=== PATIENT | male | born 1965 | race Caucasian/White ===

== ENCOUNTER 2018-11-27 05:49 | Observation (INO) ==
--- NOTE | 2018-11-18 14:04 | PAT Medication Instructions ---
Medication Instructions Date of Service November 18, 2018 Home Medications escitalopram oxalate 5 mg PO QDD losartan 50 mg PO QAM mometasone [Asmanex Twisthaler] 1 inh INHALATION QAM multivitamin 1 cap PO DAILY omega 3-mrc-spp-fish oil [Fish Oil] 1 cap PO DAILY STOP taking 2 weeks before surgery (or as soon as possible if surgery is within 2 weeks) omega 3-rpu-kzz-fish oil [Fish Oil] 1 cap PO DAILY DO NOT take the morning of surgery losartan 50 mg PO QAM multivitamin 1 cap PO DAILY Take morning of surgery With a small sip of water, OTHERWISE NOTHING TO EAT OR DRINK AFTER MIDNIGHT: mometasone [Asmanex Twisthaler] 1 inh INHALATION QAM Take evening before surgery escitalopram oxalate 5 mg PO QDD Other Notes If you have any questions please call us at [phone] or [phone] or [phone] or [phone]
--- NOTE | 2018-11-19 10:53 | Anesthesiology Consultation ---
Date of Service November 19, 2018 Assessment & Plan (1) Encounter for pre-operative examination: Possible difficult intubation due to anatomy* Chart Review Chart Review: Acceptable Risk for Surgery (pending surgeon-ordered UA) and Patient seen in Pre Admission Testing Teaching & Discussion Pre-Anesthesia Teaching/Discussion Notes: Instructed NPO after midnight before surgery,except medications with 15 cc of water. Medication instructions provided according to the PAT guidelines. History Surgery Operation Date: 11/27/18 07:45 Proposed Procedures p C5-C6 Anterior Cervical Discectomy and Fusion with Spinal Cord Monitoring - Rodolfo Martinez DO Height/Weight Height: 6 ft 1 in Weight: 122.4 kg Allergies Allergy/AdvReac Type Severity Reaction Status Date / Time CAT SCAN DYE Allergy Unknown Hives Uncoded 11/17/18 12:08 Medications Home Medications Medication Instructions Recorded Confirmed Last Taken escitalopram oxalate 5 mg PO QDD 11/17/18 11/17/18 11/16/18 losartan 50 mg PO QAM 11/17/18 11/17/18 11/17/18 mometasone [Asmanex Twisthaler] 1 inh INHALATION QAM 11/17/18 11/17/18 11/17/18 multivitamin 1 cap PO DAILY 11/17/18 11/17/18 Unknown omega 4-quo-wzf-fish oil [Fish Oil] 1 cap PO DAILY 11/17/18 11/17/18 Unknown Past Medical History Medical History Anxiety Asthma asthma HTN (hypertension) History of blood clots ? superficial RLE (2 years ago)- "no treatment" needed per patient Obesity Exercise / Class Metabolic Activity II 4-5 Yardwork/Stairs/Walk up hill Past Family History Family History Mother Family history of diabetes mellitus (DM) Past Surgical History Surgical History History of appendectomy History of left knee surgery History of right knee surgery Hx of varicose vein stripping RLE Past Anesthesia History No Hx of Anesthesia Complications and No Family Hx of Anesthesia Complications History of PONV No Hx of PONV and Hx of Motion Sickness (rare) STOP BANG Total 4 Social History Smoking Status: Never smoker Do You Dip or Chew Tobacco: Yes (2 CANS/WEEK, ADVISED NPO) Hx Alcohol Use: No Hx Substance Use: No substance use type: does not use Review of Systems Patient denies chest pain, shortness of breath, dyspnea on exertion, reflux, cough, wheezing, palpitations. Physical Exam Vital Signs VITALS BP 143/89 P 70 TEMP 98.5 SP02 97%RA RESP 16 PHYSICAL Full neck and c-spine range of motion. Mild cervicalgia with extension. Full TMJ range of motion. TMD 3 finger breaths Mallampati Score 2 Dentition: intact Lungs: clear throughout to auscultation Cardiac: regular rate and rhythm, no murmurs noted Spine: normal Carotid arteries: negative bruit Extremities: no edema Trimmed corbett Very short, thick neck Testing Laboratory Results 11/19/18 11:14 11/19/18 11:14 PT 10.3 Seconds (9.0-12.0) 11/19/18 11:14 INR 1.0 (0.9-1.1) 11/19/18 11:14 APTT 25.1 Seconds (21.0-31.0) 11/19/18 11:14 Blood Type O Positive 11/19/18 11:14 Antibody Screen NEGATIVE 11/19/18 11:14 Electrocardiogram Date: 11/19/18 NSR at 65bpm. LAD. NS IVCD. Chest X-Ray Date: 11/19/18 Findings: + NAD
--- NOTE | 2018-11-19 11:51 | XRay Report ---
XR chest Pre-admission PA/Lat CLINICAL HISTORY: 53 years-old Male presenting with preoperative assessment. TECHNIQUE: PA and lateral views of the chest were obtained. COMPARISON: None. FINDINGS: Cardiomediastinal silhouette normal. Lungs and pleural spaces clear. Degenerative changes of the thor acic spine. Upper abdomen normal. IMPRESSION: 1. No acute cardiopulmonary disease. Electronically signed by: Rubens Cortez M.D. 11/19/2018 11:50 AM
[2018-11-19 12:06] LABS: Basophils # (auto) 0.03 K/uL (0-0.2); Basophils % (auto) 0.4 %; Eosinophils # (auto) 0.14 K/uL (0-0.5); Eosinophils % (auto) 1.8 %; Hematocrit (blood only) 44.9 % (42-52); Hemoglobin 16.3 g/dL (14.0-18.0); Immature Granulocytes # (auto) 0.03 K/uL (0.00-0.02); Immature Granulocytes % (auto) 0.4 %; Lymphocytes # (auto) 2.91 K/uL (1.2-3.4); Lymphocytes % (auto) 38.2 %; Mean Corpuscular Hemoglobin 31.5 pg (25-34); Mean Corpuscular Hgb Conc 36.3 g/dL (32-36); Mean Corpuscular Volume 86.8 fL (80-100); Mean Platelet Volume 9.9 fL (7.4-10.4); Monocytes # (auto) 0.59 K/uL (0.11-0.59); Monocytes % (auto) 7.8 %; Neutrophils # (auto) 3.91 K/uL (1.4-6.5); Neutrophils % (auto) 51.4 %; Platelet Count 173 K/uL (130-400); RDW Coefficient of Variation 12.9 % (11.5-14.5); RDW Standard Deviation 41.4 fL (36.4-46.3); Red Blood Count 5.17 M/uL (4.7-6.1); White Blood Count 7.61 K/uL (4.8-10.8)
[2018-11-19 12:14] LABS: BUN Creatinine Ratio 15.5 (10-20); Creatinine Clr Calc Pharmacy 106.4 ml/min; Est GFR (African American) 88.4; Est GFR (Non-African American) 76.2
[2018-11-19 12:27] LABS: Partial Thromboplastin Ratio 0.9; Partial Thromboplastin Time 25.1 Seconds (21.0-31.0); Prothrombin Time 10.3 Seconds (9.0-12.0)
[2018-11-27] MEDS ORDERED: CeleBREX 200 MG CAP PO SCH (06:00)
[2018-11-27] MEDS ORDERED: CEFAZOLIN 3000MG 72.5 ML IV SCH (06:00)
[2018-11-27] MEDS ORDERED: ACETAMINOPHEN 500 MG TAB PO SCH (06:00)
[2018-11-27] MEDS ORDERED: LR 15ML/HR IV SCH (06:00)
[2018-11-27] MEDS ORDERED: GABAPENTIN 900 MG DOSE PO SCH (06:00)
[2018-11-27] MEDS ORDERED: fentaNYL citrate 100 MCG/2 ML VIAL ONE ×4 (06:42→08:40)
[2018-11-27] MEDS ORDERED: MIDAZOLAM HCL 1 MG/ML 2ML VIAL ONE (06:42)
[2018-11-27] MEDS ORDERED: HYDROmorphone INJ 2 MG/ML SYR/VIAL ONE (06:42)
[2018-11-27] MEDS ORDERED: ONDANSETRON INJ 2 MG/ML 2 ML VIAL ONE (06:44)
[2018-11-27] MEDS ORDERED: GLYCOPYRROLATE 0.2 MG/ML VIAL ONE (06:44)
[2018-11-27] MEDS ORDERED: NEOSTIGMINE METHYLSULFATE 1 MG/ML 10ML VIAL ONE (06:44)
[2018-11-27] MEDS ORDERED: LIDOCAINE HCL 2% 2 ML VIAL/AMP(20MG/ML) INFIL ONE (06:44)
[2018-11-27] MEDS ORDERED: ROCURONIUM BROMIDE 10 MG/ML 5 ML VIAL ONE (06:44)
[2018-11-27] MEDS ORDERED: DEXAMETHASONE SOD INJ 4 MG/ML VIAL ONE (06:44)
[2018-11-27] MEDS ORDERED: PROPOFOL IV EMULSION 10 MG/ML 20 ML VIAL IV ONE (06:44)
[2018-11-27] MEDS ORDERED: BACITRACIN INJ 50,000 UNIT VIAL ONE (06:58)
--- NOTE | 2018-11-27 07:32 | History & Physical Bridge Note ---
Date of Service November 27, 2018 History & Physical Bridge Note I have examined the patient, reviewed the History & Physical and in the interval since the performance of the History & Physical I have noted the following changes of clinical significance: no changes noted
--- NOTE | 2018-11-27 07:34 | History & Physical Report ---
Date of Service November 27, 2018 Assessment & Plan (1) Cervical stenosis of spinal canal: Anterior cervical discectomy and fusion C5-6 Present on Admission?: Yes History of Present Illness Chief Complaint: Neck and arm pain Primary Care Provider: KAREN Ryder This is a 53-year-old male presents with chronic persistent neck and arm pain after failing extensive course of nonoperative care is here for surgical intervention. Allergies Allergy/AdvReac Type Severity Reaction Status Date / Time Iodinated Contrast- Oral and Allergy Hives Verified 11/27/18 06:14 IV Dye Home Medications Home Medications Medication Instructions Recorded Confirmed Type escitalopram oxalate 5 mg PO QDD 11/17/18 11/17/18 History losartan 50 mg PO QAM 11/17/18 11/17/18 History mometasone [Asmanex Twisthaler] 1 inh INHALATION QAM 11/17/18 11/17/18 History multivitamin 1 cap PO DAILY 11/17/18 11/27/18 History omega 0-wbo-eft-fish oil [Fish Oil] 1 cap PO DAILY 11/17/18 11/27/18 History Past Med/Surg History Medical History Anxiety Asthma asthma HTN (hypertension) History of blood clots ? 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 Results & Data Vital Signs (Past 12 Hours) Vital Signs Temp Pulse Resp BP Pulse Ox 11/27/18 06:17 36.8 C 65 20 137/98 98
[2018-11-27] MEDS ORDERED: PROMETHAZINE HCL 12.5 MG in SODIUM CHLORIDE 0.9% 50 ML IV PRN (07:58)
[2018-11-27] MEDS ORDERED: LABETALOL HCL IV 5 MG/ML 20ML IV PRN (07:58)
[2018-11-27] MEDS ORDERED: ATROPINE SULFATE 0.1 MG/ML 10ML SYR IV PRN (07:58)
[2018-11-27] MEDS ORDERED: MEPERIDINE HCL 25 MG/ML CARP IV PRN (07:58)
[2018-11-27] MEDS ORDERED: ONDANSETRON INJ 2 MG/ML 2 ML VIAL IV PRN ×2 (07:58→11:19)
[2018-11-27] MEDS ORDERED: FLOSEAL HEMOSTATIC MATRIX 10ML TOP ONE (08:33)
[2018-11-27] MEDS ORDERED: SUCCINYLCHOLINE CHLORIDE 20 MG/ML 10 ML VIAL ONE (09:06)
--- NOTE | 2018-11-27 09:13 | Operative Report ---
Post Operative Report Pre & Post Diagnosis Operation Date: 11/27/18 07:45 Pre-Op Diagnosis: Cervical spinal stenosis with radiculopathy Post-Op Diagnosis: Same Procedure Operation Date: 11/27/18 07:45 Actual Procedures #1 anterior cervical discectomy with bilateral foraminotomies C5-6. #2 anterior cervical arthrodesis C5-6. #3 placement of titanium spiral cage 8 mm in height at C5-6. #4 placement of DBM in the interbody cage. #5 application of telles plate and screws across C5-6. Surgeon Rodolfo Martinez, DO [employer] Specialist Blanco Paulson Estimated Blood Loss 10 Findings See Below The patient is 6 foot 1 inches tall weighing over 123 kg with a BMI in excess of 35. The patient's significant body habitus added significant technical difficulty from patient positioning through exposure and throughout the procedure adding at least 40% increase in operative time. Specimens None Indications This is a 53-year-old male who presents with above-mentioned diagnosis after failing extensive course of nonoperative care like to undergo the above- mentioned procedure. Description of Procedure Patient was met with identified and informed consent obtained. 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 All bony prominences well-padded eyes inspected to ensure no external pressure placed upon the peer at this point the anterior cervical spine was prepped and draped in the normal sterile fashion. With the assistance of fluoroscopy identified the C5-6 disc space and a transverse incision was placed along the right anterior aspect of the cervical spine overlying this region. Sharp dissection with the assistance of bipolar electrocautery was performed down to and exposing the anterior cervical spine at C5-6. Self-retaining retractors placed. And then performed a complete discectomy of C5-6 out to the uncovertebral joints bilaterally. This included removal of all posterior annular fibers and longitudinal ligament for bilateral foraminotomies. Endplates were then burred to subcortical bleeding bone and an 8 mm Spira filled with DBM bone graft was tapped into position. Distraction apparatus was removed and a telles plate and screws applied with the assistance of fluoroscopy. Incision was then copiously irrigated explored to ensure no damage to surrounding structures remaining bleeding. 10 round NATIV[place]AD drain inserted. The incision was then closed with 2 Vicryl in the fashion of 4 Monocryl for final skin closure. Steri-Strip sterile dressings placed. Patient awakened taken to PACU stable condition. Please note Blanco Paulson present throughout the entire procedure involved in patient positioning complex portions of the surgery and final skin closure. Lastly spinal cord monitoring was utilized that procedure no changes noted. I attest to the content of the Intraoperative Record and any orders documented therein. Any exceptions are noted below.
--- NOTE | 2018-11-27 09:43 | Fluoroscopy Report ---
FL cervical 2-3V CLINICAL HISTORY: ACDF C5-C6 COMPARISON STUDY: None. FLUOROSCOPY TIME: 9 seconds. FINDINGS: 3 fluoroscopic spot images of the cervical spine demonstrate an anterior cervical discectom y and fusion at C5-C6. Hardware appears intact. IMPRESSION: Fluoroscopy provided for C5-C6 ACDF. Electronically signed by: Antonio Mackay M.D. 11/27/2018 9:41 AM
[2018-11-27] MEDS: HYDROmorphone INJ 1 MG/ML SYRINGE IV PRN ×4 (10:12→10:32)
--- NOTE | 2018-11-27 10:47 | Anesthesiology Progress Note ---
Date of Service November 27, 2018 Anesthesia Post Procedure Vital Signs Vital Signs: Temp Pulse Pulse Resp BP BP Pulse Ox 11/27/18 10:35 66 18 139/93 97 11/27/18 10:25 83 17 139/93 97 11/27/18 10:15 80 18 157/100 H 98 11/27/18 10:05 70 18 156/98 H 100 11/27/18 09:55 70 18 153/101 H 100 11/27/18 09:45 74 18 170/94 H 98 11/27/18 09:35 71 18 146/105 H 93 11/27/18 09:28 37.0 C 76 18 163/104 H 94 11/27/18 06:17 36.8 C 65 20 137/98 98 Pain Intensity Medial Neck: Pain Intensity: 4 Posterior Neck: Pain Intensity: 4 Transfer of Care Handoff Completed per policy Notes Mental Status: alert / awake / arousable Patient Amnestic to Procedure: Yes Nausea / Vomiting: adequately controlled Pain: adequately controlled Airway Patency, RR, SpO2: stable & adequate BP & HR: stable & adequate Hydration State: stable & adequate Anesthetic Complications: no major complications apparent
[2018-11-27] MEDS ORDERED: DO NOT ADMINISTER PNEUMOCOCCAL VACCINE PRN (11:19)
[2018-11-27] MEDS ORDERED: LORazepam 0.5 MG TAB PO PRN (11:19)
[2018-11-27] MEDS ORDERED: LORazepam 0.5 MG/1 ML VIAL IV PRN (11:19)
[2018-11-27] MEDS ORDERED: RACEPINEPHRINE 2.25% NEBU SOLN 0.5 ML VIAL INH PRN (11:19)
[2018-11-27] MEDS ORDERED: DiphenhydrAMINE HCL 50 MG/ML VIAL IV PRN (11:19)
[2018-11-27] MEDS ORDERED: DEXAMETHASONE SOD PHOSPHATE 8 MG in SYRINGE 0 ML IV PRN (11:19)
[2018-11-27] MEDS ORDERED: NALOXONE HCL 0.4 MG/1 ML VIAL/CARP IV PRN (11:19)
[2018-11-27] MEDS ORDERED: MAGNESIUM HYDROXIDE SUSP 30 ML UDC PO PRN (11:19)
[2018-11-27] MEDS ORDERED: LACTATED RINGER'S 1,000 ML IV SCH (11:19)
[2018-11-27] MEDS ORDERED: HYDROmorphone INJ 0.5 MG/0.5 ML SYR IV PRN (11:19)
[2018-11-27] MEDS ORDERED: DO NOT ADMINISTER FLU VACCINE PRN (11:19)
[2018-11-27] MEDS ORDERED: OXYCODONE HCL IR 5 MG TAB (IMMEDIATE RELEASE) PO PRN (11:19)
[2018-11-27] MEDS ORDERED: ACETAMINOPHEN 1,000 MG/100 ML VIAL IV PRN (11:19)
[2018-11-27] MEDS ORDERED: SCOPOLAMINE 1.5 MG TDSY TD SCH (13:00)
[2018-11-27] MEDS ORDERED: PROPOFOL IV EMULSION 10 MG/ML 100 ML VIAL IV ONE (13:01)
[2018-11-27] MEDS: CHECK SCOPOLAMINE PATCH PLACEMENT SCH ×2 (16:09→23:00)
[2018-11-27] MEDS: CEFAZOLIN 2000MG 2,000 MG/15 ML SYR IV SCH (16:09)
[2018-11-27] MEDS ORDERED: ESCITALOPRAM OXALATE 10 MG TAB PO SCH (16:30)
[2018-11-27] MEDS: DOCUSATE SODIUM 100 MG CAP PO SCH (20:08)
[2018-11-28] MEDS: CEFAZOLIN 2000MG 2,000 MG/15 ML SYR IV SCH ×2 (00:06→08:02)
[2018-11-28] MEDS: CHECK SCOPOLAMINE PATCH PLACEMENT SCH (08:01)
[2018-11-28] MEDS: DOCUSATE SODIUM 100 MG CAP PO SCH (08:02)
[2018-11-28] MEDS ORDERED: LOSARTAN POTASSIUM 50 MG TAB PO SCH (09:00)
[2018-11-28] MEDS ORDERED: MULTIVITAMIN TAB PO SCH (09:00)
[2018-11-28] MEDS ORDERED: MOMETASONE FUROATE 14 PUFF/1 INHALER INH SCH (09:00)
--- NOTE | 2018-11-28 10:14 | Discharge Summary ---
Date of Service November 28, 2018 Admission HPI Per Admitting Provider This is a 53-year-old male presents with chronic persistent neck and arm pain after failing extensive course of nonoperative care is here for surgical intervention. Principal Diagnosis Cervical spinal stenosis with radiculopathy Discharge Data Allergies Allergy/AdvReac Type Severity Reaction Status Date / Time Iodinated Contrast- Oral and Allergy Hives Verified 11/27/18 06:14 IV Dye Procedures Performed Operation Date: 11/27/18 07:45 Actual Procedures p C5-C6 Anterior Cervical Discectomy and Fusion with Spinal Cord Monitoring(Not Applicable) - Rodolfo Martinez DO Ordered Studies 11/27/18 07:45 FL cervical 2-3V Routine FL fluoroscopy <1hr Routine Hospital Course (1) Cervical stenosis of spinal canal: Patient underwent anterior cervical discectomy and fusion tolerated as well as taken to the orthopedic floor postoperatively. Postop day 1 he was swallowing well arm symptoms improved no hoarseness. Pain well controlled. Subsequent discharge home. Discharge orders and instructions from the chart for further review. Total Time Total Time Spent Total Time Spent (In Minutes): 20 minutes Discharge Plan Discharge Items Patient Disposition: Home - Self-Care Reason For Visit: Spinal Stenosis, Cervical Region Discharge Diagnosis: Cervical spinal stenosis with radiculopathy Discharge Goals: Decrease discomfort Activity: Per 'Additional Instructions' section Non-emergency contact: Primary Care Provider Call non-emergency contact if: you have any medication questions Follow-up/Referrals: Anayeli Winter CRNP [Primary Care Provider] - Diet: Regular Addtl Provider Instructions: ACTIVITY RECOMMENDATIONS: SELF CARE INSTRUCTIONS AFTER CERVICAL FUSIONS 1. No smoking. Smoking drastically decreases the chance of a solid fusion. 2. No bending, lifting more than 5 pounds, or twisting (roll like a log when turning in bed). 3. You may shower 3 days after surgery. Thoroughly dry wound. Do not soak in the tub. 4. Cervical collar: Must be worn at all times including sleeping. You may remove the brace only to bath, eat and if you are sitting in a recliner. 5. Please walk as much as you can for exercise. Gradually increase the distance that you walk as your endurance increases. SPECIAL CARE INSTRUCTIONS: VERY IMPORTANT TO READ AND REVIEW A. Do not take any anti-inflammatory medications (i.e. Indocin, Advil, Aspirin, Naprosyn, Aleve, Motrin, etc.) as these may inhibit the chance of a solid fusion. Tylenol is okay to take. B. Your surgical incision has been closed with a cosmetic suture under the skin that will dissolve in about 6 weeks. In 14 days, you can use a pair of clean scissors and cut the suture that is left outside of the skin at the ends of your incision. C. Complications are uncommon, but please contact us if you have any signs or symptoms of: 1. wound infection (fever higher than 102.5 degrees F, redness, separation of wound, drainage, or increasing pain from the incision) 2. blood clots in legs (pain, swelling, redness and warmth in legs) 3. urinary tract infection (fever higher than 102.5 degrees, burning upon urination or increased frequency of urination) 4. nerve problems (inability to walk on your toes or heels, numbness, loss of bowel or bladder control) 5. any other symptoms that concern you. D. Please call the office at if you have any concerns or questions about your operation or recovery. MANAGING PAIN AFTER SPINAL SURGERY 1. Narcotic medication is intended for short-term use and will be provided for surgical pain. Surgical pain usually lasts for a period of 4-6 weeks. Narcotic medication includes Percocet, Vicodin, Darvocet, Tylenol #3 or Lortab. 2. Longer-term pain is more appropriately treated with non-narcotic medication such as Tylenol ES. 3. Muscle spasm is not appropriately treated with narcotics. Muscle relaxers such as Soma, Flexeril or Skelaxin can be used along with Tylenol ES. 4. Remember that we all live with some "aches and pains". This is not unusual or uncommon after an injury or as we get older. 5. We will provide appropriate medication within the normal guidelines of their prescribed use. We will also be very cautious and aware of potential abuse and extended duration of patients' medication needs. 6. Please allow 2-3 days to process refills. Prescriptions will not be mailed but must be picked up at the office. FOLLOW UP VISIT: Keep your scheduled follow-up appointment. Any questions, please call the office at . Prescriptions: New oxycodone 5 mg Tablet 5 mg PO Q4H PRN (Reason: Pain) Qty: 20 RF: 0 Continued losartan 50 mg Tablet 50 mg PO QAM RF: 0 multivitamin Capsule 1 cap PO DAILY RF: 0 escitalopram oxalate 10 mg Tablet 5 mg PO QDD RF: 0 Asmanex Twisthaler 220 mcg (30 doses) Aerosol Powdr Breath Activated 1 inh INHALATION QAM RF: 0 omega 6-blp-cwk-fish oil [Fish Oil] 1,000 mg (120 mg-180 mg) Capsule 1 cap PO DAILY RF: 0 Stand-Alone Forms: [facility] Discharge Orders: Discharge Order (Routine); Ordered 11/28/18 Ordered By: Rodolfo Martinez Admission Data Admit Date/Time: 11/27/18 09:16 Attending Provider: Rodolfo Martinez Admit Provider: Rodolfo Martinez Primary Care Provider: Anayeli Winter Service: Surgical Services
[2018-11-29] MEDS ORDERED: BISACODYL 5 MG TABEC PO PRN (09:16)
== END 2018-11-28 11:06 | disposition home or self-care (01) ==
LOC: 3E 05:49 → ASU 05:49